=== PATIENT | male | born 1995 | race African-American/Black ===

== ENCOUNTER 2020-01-29 12:32 | Emergency (ER) | payer MEDICAID ==
--- OUTSIDE RECORDS SUMMARY | 2020-01-29 12:43 | XMS REPORT | Continuity of Care Document ---
:1995 External Reference #:[id number] Author Name Ginny Pereira PA Address [address] [place] [address]. [place] [address] Care Team Providers Name Role Phone Nakia Stroud MD - Orthopaedic Care Team Information Environmental Services Assistant Surgery Problems Active Problems Provider Date Sprain of shoulder Ginny Pereira PA Onset: 01/13/2020 Social History Type Date Description Comments Sex Unknown Tobacco Use Start: Unknown Never Smoked Cigarettes Smoking Status Reviewed: 01/13/20 Never Smoked Cigarettes ETOH Use Denies alcohol use Recreational Drug Use Marijuana Allergies, Adverse Reactions, Alerts Description No Known Drug Allergies Medications Description No Active Medications Immunizations Description No Information Available Vital Signs Date Vital Result Comment 01/13/2020 3:21pm BP Systolic Sitting Right Arm 159 mmHg BP Diastolic Sitting Right Arm 78 mmHg Body Temperature 97.9 F Heart Rate 80 /min Respiratory Rate 20 /min Weight 207.00 lb O2 % BldC Oximetry 90 % Results Description No Information Available Procedures Date Code Description Status 01/13/2020 08560 Radiology, Shoulder: Two Views (Sso) Completed Medical Devices Description No Information Available Encounters Type Date Location Provider Dx Diagnosis Office Visit 01/13/2020 Orthopaedic Office Ginny Pereira, S43.402A Unspecified sprain 3:15p PA of left shoulder joint, initial encounter M25.512 Pain in left shoulder Assessments Date Code Description Provider 01/13/2020 S43.402A Unspecified sprain of left shoulder joint, Ginny Pereira PA initial encounter 01/13/2020 M25.512 Pain in left shoulder Ginny Pereira PA Plan of Treatment Future Appointment(s):02/12/2020 3:30 pm - Ginny Pereira PA at [facility]/13/2020 - Ginny Pereira PAS43.402A Unspecified sprain of left shoulder joint, initial encounterNew Therapy:Physical/Occupational TherapyComments:I explained that I think that physical therapy would be helpful. If he fails to make improvement then we can consider an MRI arthrogram to evaluate for labral tear. Oral anti-inflammatory, ice, and rest or recommended. Return to the office for recheck in a month.M25.512 Pain in left shoulderAllFollow up:1 month Functional Status Description No Information Available Mental Status Description No Information Available Referrals Description No Information Available
[2020-01-29 14:18] LABS: Influenza A Molecular Negative (Negative); Influenza B Molecular Negative (Negative)
--- NOTE | 2020-01-29 15:25 | UC ---
Respiratory Complaint HPI - HPI Summary HPI Summary: 24 yo male with 2-3 day hx of sore throat /nasal congestion feverish chills fatigue - History of Current Complaint Chief Complaint: UCGeneralIllness Stated Complaint: FLU LIKE SYMP Time Seen by Provider: 01/29/20 15:16 Hx Obtained From: Patient Onset/Duration: Gradual Onset, Lasting Days Timing: Constant Severity Initially: Mild Severity Currently: Mild Pain Intensity: 2 Pain Scale Used: 0-10 Numeric Character: Cough: Nonproductive Aggravating Factors: Nothing Alleviating Factors: Nothing Associated Signs And Symptoms: Positive: Fever, Chills, Nasal Congestion - Allergies/Home Medications Allergies/Adverse Reactions: Allergies Allergy/AdvReac Type Severity Reaction Status Date / Time No Known Allergies Allergy Verified 01/29/20 13:30 Home Medications: Home Medications NK [No Home Medications Reported] 01/29/20 [History Confirmed 01/29/20] PMH/Surg Hx/FS Hx/Imm Hx Previously Healthy: Yes - Surgical History Surgical History: Yes Surgery Procedure, Year, and Place: 2013- Right ACL and pinky finger - Family History Known Family History: Positive: Hypertension - Social History Alcohol Use: None Substance Use Type: None Smoking Status (MU): Never Smoked Tobacco Review of Systems All Other Systems Reviewed And Are Negative: Yes Constitutional: Positive: Fever, Chills, Fatigue Skin: Positive: Negative Eyes: Positive: Negative ENT: Positive: Sore Throat, Nasal Discharge Respiratory: Positive: Cough Cardiovascular: Positive: Negative Gastrointestinal: Positive: Negative Genitourinary: Positive: Negative Motor: Positive: Negative Neurovascular: Positive: Negative Musculoskeletal: Positive: Negative Neurological/Mental Status: Positive: Negative Psychological: Positive: Negative Physical Exam Triage Information Reviewed: Yes Appearance: Well-Appearing, No Pain Distress, Well-Nourished Vital Signs: Initial Vital Signs Temp 99.2 F 01/29/20 13:25 Pulse 86 01/29/20 13:25 Resp 17 01/29/20 13:25 BP 121/70 01/29/20 13:25 Pulse Ox 100 01/29/20 13:25 Vital Signs Reviewed: Yes Eyes: Positive: Conjunctiva Clear ENT: Positive: Hearing grossly normal, Nasal congestion, Nasal drainage, Tonsillar swelling, Uvula midline. Negative: Tonsillar exudate, Trismus, Muffled voice, Hoarse voice, Sinus tenderness Dental Exam: Normal Neck: Positive: Supple, Nontender, Enlarged Nodes @ - ant cervical Respiratory: Positive: Lungs clear, Normal breath sounds, No respiratory distress, No accessory muscle use Cardiovascular: Positive: RRR, No Murmur Musculoskeletal: Positive: ROM Intact, No Edema Neurological: Positive: Alert Psychological Exam: Normal Skin Exam: Normal Diagnostics - Laboratory Lab Results: influneza (-) strep (-) Respiratory Course/Dx - Differential Dx/Diagnosis Provider Diagnosis: Viral URI with cough Discharge ED - Sign-Out/Discharge Documenting (check all that apply): Patient Departure All imaging exams completed and their final reports reviewed: No Studies - Discharge Plan Condition: Stable Disposition: HOME Patient Education Materials: Upper Respiratory Infection (ED) Referrals: No Primary Care Phys,NOPCP [Primary Care Provider] - Additional Instructions: rest fluids tylenol or advil if needed recheck in 5 days if not better recheck sooner for new or worsening symptoms - Billing Disposition and Condition Condition: STABLE Disposition: Home
[2020-01-29 15:33] VITALS: BP 128/68
== END 2020-01-29 15:50 | disposition home or self-care (01) ==
LOC: UCCORT 12:32
DX: J06.9 Acute upper respiratory infection, unspecified (principal); R05 Cough
CPT/HCPCS: 87651; 99201; G0463